=== PATIENT | female | born 1955 ===

== ENCOUNTER 2019-07-14 12:52 | Emergency (ER) | payer OTHER, SELFPAY ==
[2019-07-14 12:54] VITALS: BMI 30.2
[2019-07-14 13:04] VITALS: BP 158/77; PULSE 79; RESP 18; TEMP 36.7; O2SAT 92
--- NOTE | 2019-07-14 13:13 | ED_ITS ---
Entered by Praveena Francis, acting as scribe for HPI - Extremity Problem General: Chief complaint: Extremity Injury, Lower Stated complaint: fall/hip pain Time Seen by Provider: 07/14/19 12:57 Source: patient Mode of arrival: ambulatory Limitations: no limitations History of Present Illness: HPI Narrative: 64 yo Female presents to ED with complaint of lower extremity pain post fall. Pt states that she fell a week ago (last Monday) and has had pain since but this pain increased 3 days ago. Pt states her pain is in her right hip and low back. MD Complaint: extremity pain Onset (ago): week(s) (1) Pain Consistency: constant Location: lower extremity (right hip) Severity scale (1-10): 10 Quality: aching Relieving factors: immobilization Exacerbating factors: walking Associated symptoms: Reports other (low back pain) Review of Systems 2 General: Reports: 10 or more systems reviewed and unremarkable except in HPI and below Const: Reports: body aches Musc: Reports: back pain and extremity pain (right hip) PFSH ED PFSH: Statuses (acute, chronic, etc) shown below reflect problem list status as previously entered and may not be historically accurate Social History Smoking and tobacco status: current every day smoker Physical Exam Const: COMMON NORMALS: no apparent distress, average body habitus, oriented x3, no limitations, healthy appearing, alert and well nourished HENMT: COMMON NORMALS: normocephalic, head/scalp atraumatic, hearing grossly normal bilaterally, external ears normal, EAC's normal, TM's normal bilaterally, external nose normal, nasal mucous membranes and turbinates normal, moist oral mucous membranes, oropharynx normal, dentition normal and gingiva normal HEAD & SCALP: normocephalic and atraumatic NOSE: external nose normal and nasal mucous membranes and turbinates normal EXTERNAL EAR: Yes external ears normal EXTERNAL AUDITORY CANAL: EAC's normal TYMPANIC MEMBRANE: TM's normal bilaterally Eye: COMMON NORMALS: PERRL, EOMs intact bilaterally, conjunctivae normal, no scleral icterus, no papilledema, normal visual mancia by confrontation and fundi normal bilaterally CONJUNCTIVA: Yes conjunctivae normal PUPIL: Yes PERRL DIRECT OPHTHALMOSCOPY: Yes no papilledema and Yes fundi normal bilaterally Neck/C-Spine: COMMON NORMALS: full ROM, supple, no meningeal signs, no JVD and no carotid bruits Chest: COMMONS NORMALS: inspection of chest normal and palpation of chest normal Resp: COMMON NORMALS: normal respiratory effort, no retractions, no use of accessory muscles, clear to auscultation bilaterally and percussion normal AUSCULTATION: clear to auscultation bilaterally PERCUSSION: percussion normal Cardio: COMMON NORMALS: no JVD, regular rate, regular rhythm, S1 normal heart sound, S2 normal heart sound, no gallops, no clicks, no murmurs, no rub and peripheral pulses 2+ throughout RATE: regular rate RHYTHM: regular rhythm HEART SOUNDS: S1 normal and S2 normal PERIPHERAL PULSES: pulses 2+ throug hout GI: COMMON NORMALS: normal to inspection, nondistended, normoactive bowel sounds, soft to palpation, non-tender, no hepatosplenomegaly, no masses and no bruits PALPATION: Yes soft and Yes no hepatosplenomegaly : COMMON NORMALS: Yes no CVA tenderness BLADDER/KIDNEY EXAM: Yes no CVA tenderness Back/Pelvis: COMMON NORMALS: no CVA tenderness LUMBAR SPINE/LOWER BACK: Yes normal to inspection, Yes lumbar spinal tenderness and Yes straight leg raise negative bilaterally PELVIS: Yes no pain with lateral compression, No tenderness over symphysis pubis and No iliac crest elevation Extremity: COMMON NORMALS: normal to inspection, full ROM, normal capillary refill, no joint enlargement, no clubbing, cyanosis or edema, no calf tenderness and no pedal edema Neuro: COMMON NORMALS: oriented x3 SENSORIUM/ORIENTATION: Yes alert MENINGEAL SIGNS: Yes no meningeal signs Skin: COMMON NORMALS: no rashes or lesions noted, no wounds, skin turgor normal, no jaundice, no petechiae and no mottling GENERAL SKIN EXAM: no rashes or lesions noted and turgor normal Course Reevaluation(s): Reevaluation #1: Discussed her imaging findings with her, her and her son. All negative for acute fracture or dislocation. Since she is having a lot of difficulty ambulating I will send her home with a few days worth of pain medication. She voiced understanding and is in agreement with the plan. Time: 15:11 Vital Signs: Vital signs: Vital Signs Temperature 98.1 F 07/14/19 13:04 Pulse Rate 79 07/14/19 13:04 Respiratory Rate 18 07/14/19 13:04 Blood Pressure 158/77 07/14/19 13:04 Pulse Oximetry 92 07/14/19 13:04 MDM - Extremity (Nontraumatic) MDM Narrative: Medical decision making narrative: Patient with a fall and right hip and low back pain. Imaging all negative for acute findings. Examination unremarkable with no signs of severe injury. She is discharged home on conservative management. She is to ambulate and bear weight as tolerated. She is to follow-up with her primary care provider within 1 week. Imaging Data^: XR Hips/Pelvis: Radiologist's impression: [place] [address] XRay Report Signed Patient: Evelyne Fontana #: [id number] : 6Acct#:[id number] Age/Sex: 64 / FADM Date: 07/14/19 Loc: ERRoom/Bed: Attending Dr: Ordering Provider/Ordering MD: Laura Woodard MD, [facility] Date of Service: 07/14/19 Procedure(s): XR hip RT 2-3V wo/w pel* 41014 Accession Number(s): [id number] Report Number: [id number] PROCEDURE INFORMATION: Exam: XR Right Hip with Pelvis when Performed Exam date and time: 07/14/2019 2:06 PM Age: 64 years old Clinical indication: Injury or trauma; Fall; Initial encounter; Blunt trauma (contusions or hematomas); Right; Hip; Additional info: Fall, right hip pain, trouble walking fell 2 days ago TECHNIQUE: Imaging protocol: XR Right hip with pelvis when performed. Views: 1 view. COMPARISON: No relevant prior studies available. FINDINGS: Bones/joints: There are degenerative changes in the visualized lower lumbar spine. Mild narrowing of the bilateral hip joints. There are small marginal osteophytes at the superolateral aspects of the bilateral acetabula. Soft tissues: Unremarkable. Vasculature: There are benign-appearing soft tissue calcifications. XR/XR hip RT 2-3V wo/w pel* [id number] IMPRESSION: There are primary osteoarthritic changes across the hips. No evidence for acute fracture. Dictated By:Yaritza Tan MD Signed By:Yaritza Tan MDSigned Date/Time:07/14/191450 DD/ 145 XR Lumbar Spine: Radiologist's impression: [address] [place] [address] XRay Report Signed Patient: Evelyne Fontana #: [id number] : 6Acct#:[id number] Age/Sex: 64 / FADM Date: 07/14/19 Loc: ERRoom/Bed: Attending Dr: Ordering Provider/Ordering MD: Laura Woodard MD, [facility] Date of Service: 07/14/19 Procedure(s): XR lumbar spine 2-3V* 53876 Accession Number(s): [id number] Report Number: [id number] PROCEDURE INFORMATION: Exam: XR Lumbosacral Spine, 2 or 3 Views Exam date and time: 07/14/2019 2:12 PM Age: 64 years old Clinical indication: Injury or trauma; Fall; Initial encounter; Blunt trauma (contusions or hematomas); Additional info: Fall, radicular pain fell 2 days ago TECHNIQUE: Imaging protocol: XR of the lumbosacral spine, 2 or 3 views. COMPARISON: CR XR hip RT 2-3V wo/w pel* [id number] 07/14/2019 2:02 PM FINDINGS: Vertebrae: 2 degree lumbar dextroscoliosis. There are degenerative changes throughout the visualized spine including marginal osteophyte formations, endplate degenerative changes, and facet arthropathy. These changes are most severe across the L4-L5 level. Multilevel disc space narrowing most prominent at the L4-L5 level. There is vacuum disc phenomenon at the L4-L5 level. Vasculature: There is scattered calcified plaque in the aorta. Soft tissues: Normal. XR/XR lumbar spine 2-3V* [id number] IMPRESSION: There are degenerative changes as described above. No evidence for acute fracture. Dictated By:Yaritza Tan MD Signed By:Yaritza Tan MDSigned Date/Time:07/14/191452 DD/ 51 Discharge Plan Discharge Patient Disposition: Home, Self-Care Clinical Impression: Acute pain of right hip Condition: Stable Prescriptions: [place] 5-325 mg tablet 1 tab PO Q8H PRN (Reason: pain) Qty: 14 RF: 0 Continued cyclobenzaprine 10 mg tablet 10 mg PO Q8H PRN (Reason: Spasms) RF: 0 ipratropium-albuterol 0.5 mg-3 mg(2.5 mg base)/3 mL solution for nebulization See Rx Instructions .ROUTE .COMPLEX RF: 0 trazodone 50 mg Tablet 50 mg PO BEDTIME RF: 0 Vitamin B-2 100 mg Tablet 100 mg PO DAILY RF: 0 omeprazole 40 mg Capsule,Delayed Release(Dr/Ec) 40 mg PO DAILY PRN (Reason: Acid Reflux) RF: 0 ketorolac 10 mg tablet 10 mg PO Q6H PRN (Reason: Pain) RF: 0 Claritin-D 24 Hour 10-240 mg tablet extended release 24 hr 1 tab PO DAILY PRN (Reason: Allergy Symptoms) RF: 0 Calcium 500 500 mg calcium (1,250 mg) Tablet 500 mg PO DAILY PRN (Reason: unknown) RF: 0 levothyroxine 125 mcg tablet 125 mcg PO DAILY RF: 0 ProAir HFA 90 mcg/actuation HFA aerosol inhaler 2 puff INHALATION Q4H PRN (Reason: Shortness Of Breath) RF: 0 Vitamin D3 1,000 unit Capsule 1,000 unit PO DAILY RF: 0 Chantix Starting Month Box 0.5 mg (11)- 1 mg (42) tablets,dose pack See Rx Instructions .ROUTE .COMPLEX RF: 0 naproxen sodium 750 mg Tablet, Er Multiphase 24 Hr 750 mg PO DAILY PRN (Reason: Pain) RF: 0 Breo Ellipta 100-25 mcg/dose blister with device 1 inh INHALATION DAILY RF: 0 Held Midol 500-25 mg Tablet 1 tab PO DAILY RF: 0 Hold Instructions: Resume on 07/21/19. Discharge Diet: Advance as tolerated Discharge Activity: Increase activity as tolerated Activity Restrictions/Additional Instructions: Return for any new or worsening symptoms. Take the pain medicines as needed for pain. Bear weight on the right hip as tolerated. Use your cane to walk. Follow-up with your primary care provider within 1 week. Coding Level of Care Code ED Propeller Engineer for Chg Fwd Exam Problem Focused The documentation recorded by the Tito jean baptiste Carmen, accurately reflects the service I personally performed and the decisions made by me, Laura Woodard MD, [facility] Jul 14, 2019 12:52
[2019-07-14] MEDS: orphenadrine 30 mg/mL Inj 2 mL 60 MG IM (13:33)
[2019-07-14] MEDS: ketorolac 60 mg/2 mL INJ IM (13:33)
--- NOTE | 2019-07-14 13:55 | PC.NURSE ---
Patient to restroom via wheelchair. Patient did not want to use bedpan or bedside commode.
[2019-07-14 15:38] VITALS: BP 128/74; PULSE 80; RESP 15; O2SAT 91
== END 2019-07-14 15:39 | disposition home or self-care (01) ==
PROVIDERS: Emergency Provider Family Medicine
DX: M25.551 Pain in right hip (principal); F17.210 Nicotine dependence, cigarettes, uncomplicated
CPT/HCPCS: 72100; 73502; 96372; 99281; J1885; J2360